=== PATIENT | female | born 1995 | race Caucasian/White ===

== ENCOUNTER 2020-11-12 07:06 | Emergency (ER) | payer OTHER ==
[~2020-11-12] VITALS: Ht 170.2 cm; Wt 60.0 kg
[2020-11-12] MEDS ORDERED: SODIUM CHLORIDE FLUSH 10ML SYR IVF ONE (07:30)
[2020-11-12] MEDS ORDERED: SODIUM CHLORIDE 0.9% 1,000ML IVBOLUS ONE (07:30)
--- NOTE | 2020-11-12 07:51 | NUR ---
IV PLACED, LABS DRAWN WITH START. URINE COLLECTED/SENT TO LAB. PT STATES NO PAIN AT THIS TIME. CALL LIGHT WITHIN REACH, WARM BLANKET PROVIDED, LIGHTS DIMMED.
[2020-11-12 08:05] LABS: BASOPHILS % (AUTO) 0 % (0-1); EOSINOPHILS % (AUTO) 2 % (1-7); LYMPHOCYTES % (AUTO) 28 % (22-44); MEAN CORPUSCULAR HEMOGLOBIN 30.3 pg (27.0-34.8); MEAN CORPUSCULAR HGB CONC 33.5 g/dL (32.4-35.8); MEAN PLATELET VOLUME 9.5 fL (7.4-10.4); MONOCYTES % (AUTO) 11 % (2-9); NEUTROPHILS % (AUTO) 59 % (42-75); PLATELET COUNT 239 x10^3/uL (130-400); RED BLOOD COUNT 4.47 x10^6/uL (3.82-5.3); RED CELL DISTRIBUTION WIDTH 14.5 % (9.6-15.2)
[2020-11-12 08:14] LABS: ALANINE AMINOTRANSFERASE 32 U/L (12-78); ALBUMIN 3.7 g/dL (3.4-5.0); ANION GAP 6 mmol/L (5-15); CALCIUM 8.5 mg/dL (8.5-10.1); CHLORIDE 107 mmol/L (98-107); CREATININE 0.68 mg/dL (0.55-1.02)
[2020-11-12 08:19] LABS: ALKALINE PHOSPHATASE 55 U/L (45-117); BILIRUBIN,TOTAL 0.7 mg/dL (0.2-1.0); TOTAL PROTEIN 7.4 g/dL (6.4-8.2)
--- NOTE | 2020-11-12 08:30 | NUR ---
PT TO CT.
[2020-11-12 08:31] LABS: MICROSCOPIC NOT IND
[2020-11-12] MEDS ORDERED: OMNIPAQUE 350 MG/ML, 100ML BOTTLE ONE (08:50)
[2020-11-12 09:03] VITALS: BP 116/76
--- NOTE | 2020-11-12 09:08 | NUR ---
ALL RESULTS BACK, PT FOR RECHECK. VSS/UPDATED IN COMPUTER. PT RATES PAIN AT 2/10 AT HIS TIME.
[2020-11-12] MEDS ORDERED: MAALOX/HYOSCYAMINE/LIDOCAINE 45 ML BTL ONE (09:26)
[2020-11-12] MEDS ORDERED: MAALOX/HYOSCYAMINE/LIDOCAINE 45 ML BTL PO ONE (09:30)
== END 2020-11-12 09:54 | disposition home or self-care (01) ==
LOC: ED 09:47
DX: K52.9 Noninfective gastroenteritis and colitis, unspecified (principal)
CPT/HCPCS: 36415; 74177; 80053; 81003; 83690; 84703; 85025; 96360; 99285; J7030; Q9967